=== PATIENT | male | born 1975 | race African-American/Black ===

== ENCOUNTER 2018-08-12 06:08 | Emergency (ER) | payer OTHER ==
[2018-08-12] MEDS: IBUPROFEN 800 MG TAB PO (07:30)
== END 2018-08-12 07:45 | disposition home or self-care (01) ==
LOC: E/R 06:08
DX: R07.9 Chest pain, unspecified (principal); Z87.891 Personal history of nicotine dependence
CPT/HCPCS: 71045; 93005; 99284-25